=== PATIENT | male | born 1955 | race Two or more races ===

== ENCOUNTER 2017-12-22 04:54 | Inpatient (IN) | payer BC, OTHER ==
[2017-12-22] MEDS ORDERED: ONDANSETRON 4 MG INJ IV (11:00)
[2017-12-22] MEDS ORDERED: NACL 0.9% 3 ML SYG IV (11:00)
[2017-12-22 12:25] LABS: ADD MAN DIFF? NO
[2017-12-22 12:33] LABS: ABNORMAL IP MESSAGE 1; BASOPHIL # 0.1 10^3/ul (0.0-0.1); BASOPHILS % 2.8 % (0.0-2.0); HEMATOCRIT 36.2 % (42.0-52.0); HEMOGLOBIN 12.5 g/dl (14.0-18.0); LYMPHOCYTES # 1.1 10^3/ul (0.8-2.9); LYMPHOCYTES % 30.1 % (15.0-51.0); MEAN CORPUSCULAR HEMOGLOBIN 29.3 pg (29.0-33.0); MEAN CORPUSCULAR HGB CONC 34.5 g/dl (32.0-37.0); MEAN PLATELET VOLUME 10.6 fl (7.4-10.4); MONOCYTE # 0.5 10^3/ul (0.3-0.9); MONOCYTES % 14.4 % (0.0-11.0); NEUTROPHIL # 1.9 10^3/ul (1.6-7.5); NEUTROPHILS % 52.4 % (39.0-77.0); PLATELET COUNT 79 10^3/UL (140-415); POSITIVE DIFF @See below; RED BLOOD COUNT 4.26 10^6/ul (4.70-6.10); RED CELL DISTRIBUTION WIDTH 14.8 % (11.5-14.5)
[2017-12-22 12:33] LABS: WHITE BLOOD COUNT 3.6 10^3/ul (4.8-10.8)
[2017-12-22 12:51] LABS: LACTIC ACID 1.3 mmol/L (0.5-2.0)
[2017-12-22 12:53] LABS: ALANINE AMINOTRANSFERASE 155 IU/L (13-69); ALBUMIN 3.4 g/dl (3.3-4.9); ALBUMIN/GLOBULIN RATIO 1.09; ALKALINE PHOSPHATASE 341 IU/L (42-121); ANION GAP 12 (8-16); ASPARTATE AMINO TRANSFERASE 69 IU/L (15-46); BILIRUBIN,INDIRECT 0.9 mg/dl (0-1.1); BILIRUBIN,TOTAL 0.9 mg/dl (0.2-1.3); BLOOD UREA NITROGEN 8 mg/dl (7-20); CALCIUM 8.5 mg/dl (8.4-10.2); CARBON DIOXIDE 23 mmol/L (21-31); CHLORIDE 109 mmol/L (97-110); CHOL/HDL RATIO 7.8 RATIO; CHOLESTEROL 117 mg/dl (100-200); CREATININE 0.59 mg/dl (0.61-1.24); GLUCOSE 107 mg/dl (70-220); HDL CHOLESTEROL 15 mg/dl (30-78); LDL CHOLESTEROL,CALCULATED 38 mg/dl; POTASSIUM 3.9 mmol/L (3.5-5.1); SODIUM 140 mmol/L (135-144); TOTAL PROTEIN 6.5 g/dl (6.1-8.1); TRIGLYCERIDES 322 mg/dl (0-149)
[2017-12-22 13:28] LABS: THYROID STIMULATING HORMONE 0.438 MIU/L (0.465-4.680)
[2017-12-22] MEDS: SOD CHLORIDE 0.9% 1,000 ML IV ×3 (13:30→23:30)
[2017-12-22 13:49] LABS: ANISOCYTOSIS 1+ (0-0); BAND NEUTROPHILS #M 0.3 10^3/ul (0.0-0.6); BAND NEUTROPHILS % (M) 10 % (0-4); BASOPHILS % (M) 1 % (0-2); GIANT THROMBO% (M) 6 % (0-0); LYMPHOCYTES #M 0.5 10^3/ul (0.8-2.9); LYMPHOCYTES % (M) 15 % (15-51); METAMYELOCYTES %M 1 % (0-0); MICROCYTOSIS 1+ (0-0); MONOCYTE #M 0.3 10^3/ul (0.3-0.9); MONOCYTES % (M) 11 % (0-11); PLATELET ESTIMATE DECREASED; REACTIVE LYMPHOCYTES #M 0.2 10^3/ul (0.0-0.0); REACTIVE LYMPHOCYTES% (M) 8 % (0-0); SEGMENTED NEUTROPHILS (M) % 54 % (39-77); SMUDGE%M 5 % (0-0)
[2017-12-22] MEDS: SOD CHLORIDE 0.9% 500 ML IV (14:24)
[2017-12-22] MEDS: ACETAMINOPHEN 325 MG TAB PO (15:30)
[2017-12-22] MEDS: PIPER-TAZO 3.375 GM IV (PMX) 100 ML IVPB ×2 (15:34→18:57)
[2017-12-22 17:20] LABS: HEMOGLOBIN A1C 5.1 % (0-5.9)
[2017-12-22] MEDS: SOD CHLORIDE 0.9% 100 ML (17:51)
[2017-12-22] MEDS: IOHEXOL 300MG/ML 150 ML BTL (17:51)
[2017-12-22] MEDS: FISH OIL 1,000 MG CAP PO (20:48)
[2017-12-23] MEDS: PIPER-TAZO 3.375 GM IV (PMX) 100 ML IVPB ×4 (00:15→18:22)
[2017-12-23] MEDS: SOD CHLORIDE 0.9% 1,000 ML IV ×3 (05:48→18:22)
[2017-12-23 06:04] LABS: ABNORMAL IP MESSAGE 1; HEMATOCRIT 33.8 % (42.0-52.0); HEMOGLOBIN 11.7 g/dl (14.0-18.0); MEAN CORPUSCULAR HEMOGLOBIN 29.4 pg (29.0-33.0); MEAN CORPUSCULAR HGB CONC 34.6 g/dl (32.0-37.0); MEAN CORPUSCULAR VOLUME 84.9 fl (82.0-101.0); MEAN PLATELET VOLUME 11.2 fl (7.4-10.4); PLATELET COUNT 64 10^3/UL (140-415); POSITIVE DIFF @See below; RED BLOOD COUNT 3.98 10^6/ul (4.70-6.10); RED CELL DISTRIBUTION WIDTH 14.6 % (11.5-14.5)
[2017-12-23 06:04] LABS: WHITE BLOOD COUNT 3.2 10^3/ul (4.8-10.8)
[2017-12-23 06:14] LABS: ADD MAN DIFF? YES
[2017-12-23 07:14] LABS: ANION GAP 10 (8-16); BLOOD UREA NITROGEN 11 mg/dl (7-20); CALCIUM 8.3 mg/dl (8.4-10.2); CARBON DIOXIDE 24 mmol/L (21-31); CHLORIDE 107 mmol/L (97-110); CREATININE 0.72 mg/dl (0.61-1.24); GLUCOSE 124 mg/dl (70-220); POTASSIUM 3.7 mmol/L (3.5-5.1); SODIUM 137 mmol/L (135-144)
[2017-12-23] MEDS: ACETAMINOPHEN 325 MG TAB PO ×2 (07:52→20:24)
[2017-12-23] MEDS: FISH OIL 1,000 MG CAP PO ×2 (08:19→20:24)
[2017-12-23 09:18] LABS: ANISOCYTOSIS 1+ (0-0); BAND NEUTROPHILS #M 0.3 10^3/ul (0.0-0.6); BAND NEUTROPHILS % (M) 11 % (0-4); GIANT THROMBO% (M) 1 % (0-0); LYMPHOCYTES #M 0.8 10^3/ul (0.8-2.9); LYMPHOCYTES % (M) 25 % (15-51); MICROCYTOSIS 1+ (0-0); MONOCYTE #M 0.4 10^3/ul (0.3-0.9); MONOCYTES % (M) 13 % (0-11); PLATELET ESTIMATE SIG DECREASED; POIKILOCYTOSIS 1+ (0-0); POLYCHROMASIA 1+ (0-0); REACTIVE LYMPHOCYTES #M 0.1 10^3/ul (0.0-0.0); REACTIVE LYMPHOCYTES% (M) 5 % (0-0); SEG NEUT #M 1.5 10^3/ul (1.6-7.5); SEGMENTED NEUTROPHILS (M) % 46 % (39-77); SMUDGE%M 17 % (0-0); SPHEROCYTES 1+ (0-0); TEAR DROP CELLS 1+ (0-0)
[2017-12-23 11:33] LABS: HAAIG REFLEX REFLEX FILED
[2017-12-23 12:03] LABS: INR 1.19; PROTIME 15.3 Sec (11.9-14.9); PT RATIO 1.2
[2017-12-23 12:04] LABS: PARTIAL THROMBOPLASTIN TIME 31.5 Sec (25.0-35.0)
[2017-12-23 12:53] LABS: HEPATITIS B SURFACE ANTIGEN NEGATIVE (NEGATIVE)
[2017-12-23 13:07] LABS: HIV 1&2 ANTIBODY NEGATIVE (NEGATIVE)
[2017-12-23 13:11] LABS: HEPATITIS B CORE ANTIBODY NEGATIVE (NEGATIVE); HEPATITIS C VIRAL ANTIBODY NEGATIVE (NEGATIVE)
[2017-12-23 17:23] LABS: IRON 52 ug/dl (35-150)
[2017-12-23 17:29] LABS: RHEUMATOID FACTOR NEGATIVE (NEGATIVE)
[2017-12-23 17:33] LABS: % IRON SATURATION 14 % SAT (22-52); TOTAL IRON BINDING CAPACITY 363 ug/dl (241-421)
[2017-12-23 18:13] LABS: HEPATITIS C VIRAL ANTIBODY NEGATIVE (NEGATIVE)
[2017-12-23 18:14] LABS: HEPATITIS B SURFACE ANTIBODY NEGATIVE (NEGATIVE)
[2017-12-23 18:14] LABS: ADD UMIC NO; UR ASCORBIC ACID NEGATIVE (NEGATIVE); UR BILIRUBIN (Dip) NEGATIVE (NEGATIVE); UR BLOOD (Dip) NEGATIVE (NEGATIVE); UR CLARITY CLEAR (CLEAR); UR COLOR YELLOW (YELLOW); UR GLUCOSE (Dip) NEGATIVE (NEGATIVE); UR KETONES (Dip) NEGATIVE (NEGATIVE); UR LEUKOCYTE ESTERASE (Dip) NEGATIVE Leu/ul (NEGATIVE); UR NITRITE (Dip) NEGATIVE (NEGATIVE); UR SPECIFIC GRAVITY (Dip) 1.015 (1.003-1.030); UR TOTAL PROTEIN (Dip) NEGATIVE (NEGATIVE); UR UROBILINOGEN (Dip) NEGATIVE (NEGATIVE)
[2017-12-24] MEDS: PIPER-TAZO 3.375 GM IV (PMX) 100 ML IVPB ×5 (00:15→23:38)
[2017-12-24] MEDS: SOD CHLORIDE 0.9% 1,000 ML IV ×3 (05:33→17:22)
[2017-12-24] MEDS: ACETAMINOPHEN 325 MG TAB PO ×3 (05:34→21:00)
[2017-12-24 05:42] LABS: ABNORMAL IP MESSAGE 1; HEMOGLOBIN 12.3 g/dl (14.0-18.0); MEAN CORPUSCULAR HEMOGLOBIN 29.2 pg (29.0-33.0); MEAN CORPUSCULAR HGB CONC 34.2 g/dl (32.0-37.0); MEAN CORPUSCULAR VOLUME 85.5 fl (82.0-101.0); MEAN PLATELET VOLUME 10.8 fl (7.4-10.4); PLATELET COUNT 69 10^3/UL (140-415); POSITIVE DIFF @See below; RED BLOOD COUNT 4.21 10^6/ul (4.70-6.10)
[2017-12-24 06:00] LABS: ADD MAN DIFF? YES
[2017-12-24 07:48] LABS: ANISOCYTOSIS 1+ (0-0); BAND NEUTROPHILS #M 0.2 10^3/ul (0.0-0.6); BAND NEUTROPHILS % (M) 8 % (0-4); LYMPHOCYTES #M 0.9 10^3/ul (0.8-2.9); LYMPHOCYTES % (M) 32 % (15-51); MONOCYTE #M 0.4 10^3/ul (0.3-0.9); MONOCYTES % (M) 14 % (0-11); PLATELET ESTIMATE DECREASED; REACTIVE LYMPHOCYTES% (M) 2 % (0-0); SEG NEUT #M 1.3 10^3/ul (1.6-7.5); SEGMENTED NEUTROPHILS (M) % 44 % (39-77); SMUDGE%M 5 % (0-0)
[2017-12-24] MEDS: FISH OIL 1,000 MG CAP PO ×2 (10:15→20:59)
[2017-12-24] MEDS: DOXYCYCLINE 100 MG in SOD CHLORIDE 0.9% 250 ML IVPB (20:59)
[2017-12-25] MEDS: SOD CHLORIDE 0.9% 1,000 ML IV ×3 (01:30→16:13)
[2017-12-25] MEDS: ACETAMINOPHEN 325 MG TAB PO ×3 (02:57→20:03)
[2017-12-25] MEDS: PIPER-TAZO 3.375 GM IV (PMX) 100 ML IVPB ×3 (05:31→17:40)
[2017-12-25 06:05] LABS: ABNORMAL IP MESSAGE 1; HEMATOCRIT 32.4 % (42.0-52.0); HEMOGLOBIN 11.2 g/dl (14.0-18.0); MEAN CORPUSCULAR HEMOGLOBIN 29.1 pg (29.0-33.0); MEAN CORPUSCULAR HGB CONC 34.6 g/dl (32.0-37.0); MEAN CORPUSCULAR VOLUME 84.2 fl (82.0-101.0); MEAN PLATELET VOLUME 11.1 fl (7.4-10.4); PLATELET COUNT 64 10^3/UL (140-415); POSITIVE DIFF @See below; RED BLOOD COUNT 3.85 10^6/ul (4.70-6.10); RED CELL DISTRIBUTION WIDTH 14.9 % (11.5-14.5)
[2017-12-25 06:05] LABS: WHITE BLOOD COUNT 2.5 10^3/ul (4.8-10.8)
[2017-12-25 06:10] LABS: ADD MAN DIFF? YES
[2017-12-25 08:51] LABS: INFLUENZA VIRUS A/B SOURCE NASOPHARYNGEAL
[2017-12-25] MEDS: DOXYCYCLINE 100 MG in SOD CHLORIDE 0.9% 250 ML IVPB ×3 (09:00→20:07)
[2017-12-25] MEDS: FISH OIL 1,000 MG CAP PO ×2 (09:00→20:07)
[2017-12-25 09:35] LABS: ANISOCYTOSIS 1+ (0-0); BAND NEUTROPHILS #M 0.2 10^3/ul (0.0-0.6); BAND NEUTROPHILS % (M) 10 % (0-4); GIANT THROMBO% (M) 5 % (0-0); LYMPHOCYTES #M 0.6 10^3/ul (0.8-2.9); LYMPHOCYTES % (M) 24 % (15-51); MONOCYTE #M 0.4 10^3/ul (0.3-0.9); MONOCYTES % (M) 16 % (0-11); PLATELET ESTIMATE DECREASED; POLYCHROMASIA 1+ (0-0); REACTIVE LYMPHOCYTES% (M) 3 % (0-0); SEG NEUT #M 1.2 10^3/ul (1.6-7.5); SEGMENTED NEUTROPHILS (M) % 46 % (39-77); SMUDGE%M 11 % (0-0)
[2017-12-25 10:26] LABS: CYTOMEGALOVIRUS ANTIBODY (IGM) <30.00 AU/mL
[2017-12-25 13:26] LABS: ANA SCREEN NEGATIVE (NEGATIVE)
[2017-12-25] MEDS: MIDAZOLAM 1 MG/ML 2 ML INJ (13:57)
[2017-12-25] MEDS: SOD CHLORIDE 0.9% 500 ML (13:57)
[2017-12-25] MEDS: FENTAnyl 50 MCG/ML VIAL (13:57)
[2017-12-25] MEDS: LIDOCAINE 1% (MDV) 10 ML INJ (13:57)
[2017-12-25 15:00] LABS: RAPID PLASMA REAGIN NONREACTIVE (NR)
[2017-12-25 15:08] LABS: MONOTEST Positive (NEG)
[2017-12-25 15:47] LABS: ALBUMIN 3.3 g/dL (3.8-4.8); ALPHA-1-GLOBULINS 0.4 g/dL (0.2-0.3); ALPHA-2-GLOBULINS 0.7 g/dL (0.5-0.9); BETA 2 GLOBULINS 0.3 g/dL (0.2-0.5); BETA GLOBULINS 0.4 g/dL (0.4-0.6); GAMMA GLOBULINS 0.9 g/dL (0.8-1.7)
[2017-12-26] MEDS: PIPER-TAZO 3.375 GM IV (PMX) 100 ML IVPB ×6 (01:17→17:41)
[2017-12-26] MEDS: ACETAMINOPHEN 325 MG TAB PO ×3 (01:27→22:26)
[2017-12-26] MEDS: SOD CHLORIDE 0.9% 1,000 ML IV ×2 (06:26→17:30)
[2017-12-26 06:29] LABS: WHITE BLOOD COUNT 2.8 10^3/ul (4.8-10.8)
[2017-12-26 06:29] LABS: ABNORMAL IP MESSAGE 1; HEMATOCRIT 32.2 % (42.0-52.0); HEMOGLOBIN 11.2 g/dl (14.0-18.0); MEAN CORPUSCULAR HEMOGLOBIN 29.3 pg (29.0-33.0); MEAN CORPUSCULAR HGB CONC 34.8 g/dl (32.0-37.0); MEAN CORPUSCULAR VOLUME 84.3 fl (82.0-101.0); PLATELET COUNT 81 10^3/UL (140-415); POSITIVE DIFF @See below; RED BLOOD COUNT 3.82 10^6/ul (4.70-6.10); RED CELL DISTRIBUTION WIDTH 15.8 % (11.5-14.5)
[2017-12-26 06:40] LABS: ADD MAN DIFF? YES
[2017-12-26 07:59] LABS: ANISOCYTOSIS 1+ (0-0); BAND NEUTROPHILS #M 0.3 10^3/ul (0.0-0.6); BAND NEUTROPHILS % (M) 12 % (0-4); EOSINOPHILS % (M) 1 % (0-7); GIANT THROMBO% (M) 1 % (0-0); LYMPHOCYTES % (M) 39 % (15-51); MONOCYTE #M 0.1 10^3/ul (0.3-0.9); MONOCYTES % (M) 4 % (0-11); PLATELET ESTIMATE DECREASED; SEG NEUT #M 1.3 10^3/ul (1.6-7.5); SEGMENTED NEUTROPHILS (M) % 45 % (39-77); SMUDGE%M 58 % (0-0)
[2017-12-26] MEDS: FISH OIL 1,000 MG CAP PO ×2 (08:42→20:32)
[2017-12-26] MEDS: DOXYCYCLINE 100 MG in SOD CHLORIDE 0.9% 250 ML IVPB ×2 (08:43→20:33)
[2017-12-26] MEDS: NAPROXEN 250 MG TAB PO ×2 (12:36→20:32)
[2017-12-26] MEDS: MULTIVITAMINS THERAPEUTIC TAB PO (12:37)
[2017-12-26 20:02] LABS: EBV VIRAL CAPSID AG AB (IGM) <36.00 U/mL
[2017-12-26] MEDS: CALCIUM CARBONATE 1.25 GM TAB GTB (20:32)
[2017-12-27] MEDS: PIPER-TAZO 3.375 GM IV (PMX) 100 ML IVPB ×4 (00:55→17:49)
[2017-12-27] MEDS: SOD CHLORIDE 0.9% 1,000 ML IV ×3 (03:30→19:48)
[2017-12-27 06:34] LABS: ABNORMAL IP MESSAGE 1; HEMATOCRIT 33.1 % (42.0-52.0); HEMOGLOBIN 11.3 g/dl (14.0-18.0); MEAN CORPUSCULAR HGB CONC 34.1 g/dl (32.0-37.0); MEAN CORPUSCULAR VOLUME 84.9 fl (82.0-101.0); PLATELET COUNT 68 10^3/UL (140-415); POSITIVE DIFF @See below; RED CELL DISTRIBUTION WIDTH 15.8 % (11.5-14.5)
[2017-12-27 06:34] LABS: WHITE BLOOD COUNT 1.9 10^3/ul (4.8-10.8)
[2017-12-27 06:44] LABS: ADD MAN DIFF? YES
[2017-12-27 08:13] LABS: ANISOCYTOSIS 1+ (0-0); BAND NEUTROPHILS #M 0.2 10^3/ul (0.0-0.6); BAND NEUTROPHILS % (M) 11 % (0-4); GIANT THROMBO% (M) 3 % (0-0); HYPOCHROMASIA 2+ (0-0); LYMPHOCYTES #M 0.4 10^3/ul (0.8-2.9); LYMPHOCYTES % (M) 24 % (15-51); MONOCYTE #M 0.2 10^3/ul (0.3-0.9); MONOCYTES % (M) 15 % (0-11); PLATELET ESTIMATE SIG DECREASED; POLYCHROMASIA 3+ (0-0); REACTIVE LYMPHOCYTES #M 0.1 10^3/ul (0.0-0.0); REACTIVE LYMPHOCYTES% (M) 7 % (0-0); SEG NEUT #M 0.8 10^3/ul (1.6-7.5); SEGMENTED NEUTROPHILS (M) % 43 % (39-77); SMUDGE%M 5 % (0-0)
[2017-12-27] MEDS: VITAMIN B COMPLEX/VIT C CAP PO (08:24)
[2017-12-27] MEDS: FISH OIL 1,000 MG CAP PO ×2 (08:24→21:15)
[2017-12-27] MEDS: MULTIVITAMINS THERAPEUTIC TAB PO (08:24)
[2017-12-27] MEDS: CALCIUM CARBONATE 1.25 GM TAB GTB ×2 (08:24→21:15)
[2017-12-27] MEDS: CHOLECALCIFEROL 1,000 UNIT TAB PO (08:24)
[2017-12-27] MEDS: NAPROXEN 250 MG TAB PO ×2 (08:24→21:15)
[2017-12-27] MEDS: DOXYCYCLINE 100 MG in SOD CHLORIDE 0.9% 250 ML IVPB ×2 (08:24→21:15)
[2017-12-27] MEDS: ACETAMINOPHEN 325 MG TAB PO (19:48)
[2017-12-28] MEDS: PIPER-TAZO 3.375 GM IV (PMX) 100 ML IVPB ×2 (00:01→05:23)
[2017-12-28 05:43] LABS: ADD MAN DIFF? NO
[2017-12-28 05:46] LABS: ABNORMAL IP MESSAGE 1; BASOPHILS % 1.8 % (0.0-2.0); POSITIVE DIFF @See below
[2017-12-28 06:55] LABS: WHITE BLOOD COUNT 2.3 10^3/ul (4.8-10.8)
[2017-12-28 06:55] LABS: EOSINOPHILS % 0.4 % (0.0-7.0); HEMATOCRIT 30.6 % (42.0-52.0); HEMOGLOBIN 10.7 g/dl (14.0-18.0); LYMPHOCYTES # 0.7 10^3/ul (0.8-2.9); LYMPHOCYTES % 30.5 % (15.0-51.0); MEAN CORPUSCULAR HEMOGLOBIN 29.2 pg (29.0-33.0); MEAN CORPUSCULAR VOLUME 83.4 fl (82.0-101.0); MEAN PLATELET VOLUME 11.4 fl (7.4-10.4); MONOCYTE # 0.4 10^3/ul (0.3-0.9); NEUTROPHIL # 1.2 10^3/ul (1.6-7.5); NEUTROPHILS % 51.4 % (39.0-77.0); PLATELET COUNT 66 10^3/UL (140-415); RED BLOOD COUNT 3.67 10^6/ul (4.70-6.10); RED CELL DISTRIBUTION WIDTH 15.9 % (11.5-14.5)
[2017-12-28 07:16] LABS: MONOCYTES % 15.5 % (0.0-11.0)
[2017-12-28] MEDS: MULTIVITAMINS THERAPEUTIC TAB PO (08:25)
[2017-12-28] MEDS: VITAMIN B COMPLEX/VIT C CAP PO (08:25)
[2017-12-28] MEDS: CHOLECALCIFEROL 1,000 UNIT TAB PO (08:25)
[2017-12-28] MEDS: FISH OIL 1,000 MG CAP PO ×2 (08:25→20:22)
[2017-12-28] MEDS: DOXYCYCLINE 100 MG in SOD CHLORIDE 0.9% 250 ML IVPB (08:25)
[2017-12-28] MEDS: CALCIUM CARBONATE 1.25 GM TAB GTB ×2 (08:25→20:22)
[2017-12-28] MEDS: NAPROXEN 250 MG TAB PO ×2 (08:25→20:22)
[2017-12-28] MEDS: SOD CHLORIDE 0.9% 1,000 ML IV ×2 (08:26→20:23)
[2017-12-28 09:23] LABS: ANISOCYTOSIS 1+ (0-0); BAND NEUTROPHILS #M 0.3 10^3/ul (0.0-0.6); BAND NEUTROPHILS % (M) 16 % (0-4); BASOPHILS % (M) 2 % (0-2); GIANT THROMBO% (M) 6 % (0-0); LYMPHOCYTES #M 0.5 10^3/ul (0.8-2.9); LYMPHOCYTES % (M) 25 % (15-51); MONOCYTES % (M) 4 % (0-11); PLATELET ESTIMATE DECREASED; SEG NEUT #M 1.2 10^3/ul (1.6-7.5); SEGMENTED NEUTROPHILS (M) % 53 % (39-77); SMUDGE%M 65 % (0-0)
[2017-12-28] MEDS: ACETAMINOPHEN 325 MG TAB PO (22:33)
[2017-12-29] MEDS: SOD CHLORIDE 0.9% 1,000 ML IV ×2 (05:53→18:01)
[2017-12-29] MEDS: IOHEXOL 300MG/ML 150 ML BTL (09:53)
[2017-12-29] MEDS: SOD CHLORIDE 0.9% 100 ML (09:53)
[2017-12-29] MEDS: VITAMIN B COMPLEX/VIT C CAP PO (09:55)
[2017-12-29] MEDS: FISH OIL 1,000 MG CAP PO ×2 (09:55→20:55)
[2017-12-29] MEDS: CALCIUM CARBONATE 1.25 GM TAB GTB ×2 (09:56→21:27)
[2017-12-29] MEDS: NAPROXEN 250 MG TAB PO ×2 (09:56→20:55)
[2017-12-29] MEDS: CHOLECALCIFEROL 1,000 UNIT TAB PO (09:56)
[2017-12-29] MEDS: MULTIVITAMINS THERAPEUTIC TAB PO (09:56)
[2017-12-29 13:28] LABS: NIL 0.25 IU/mL; QUANTIFERON(R)-TB GOLD NEGATIVE (NEGATIVE); TB-NIL 0.02 IU/mL
[2017-12-29 20:58] LABS: WEST NILE VIRUS ANTIBODY (IGG) <1.30 index; WEST NILE VIRUS ANTIBODY (IGM) <0.90 index
[2017-12-30] MEDS: SOD CHLORIDE 0.9% 1,000 ML IV ×3 (02:57→22:32)
[2017-12-30 06:20] LABS: ABNORMAL IP MESSAGE 1; HEMATOCRIT 28.9 % (42.0-52.0); HEMOGLOBIN 10.2 g/dl (14.0-18.0); MEAN CORPUSCULAR HEMOGLOBIN 28.9 pg (29.0-33.0); MEAN CORPUSCULAR HGB CONC 35.3 g/dl (32.0-37.0); MEAN CORPUSCULAR VOLUME 81.9 fl (82.0-101.0); MEAN PLATELET VOLUME 10.7 fl (7.4-10.4); PLATELET COUNT 87 10^3/UL (140-415); POSITIVE DIFF @See below; RED BLOOD COUNT 3.53 10^6/ul (4.70-6.10); RED CELL DISTRIBUTION WIDTH 16.4 % (11.5-14.5)
[2017-12-30 06:20] LABS: WHITE BLOOD COUNT 2.7 10^3/ul (4.8-10.8)
[2017-12-30 06:51] LABS: ADD MAN DIFF? YES
[2017-12-30] MEDS: FISH OIL 1,000 MG CAP PO ×2 (08:43→20:07)
[2017-12-30] MEDS: NAPROXEN 250 MG TAB PO ×2 (08:43→20:07)
[2017-12-30] MEDS: VITAMIN B COMPLEX/VIT C CAP PO (08:43)
[2017-12-30] MEDS: MULTIVITAMINS THERAPEUTIC TAB PO (08:43)
[2017-12-30] MEDS: CHOLECALCIFEROL 1,000 UNIT TAB PO (08:43)
[2017-12-30] MEDS: CALCIUM CARBONATE 1.25 GM TAB GTB ×2 (08:43→20:07)
[2017-12-30 10:01] LABS: ANISOCYTOSIS 1+ (0-0); BAND NEUTROPHILS #M 0.2 10^3/ul (0.0-0.6); BAND NEUTROPHILS % (M) 10 % (0-4); HYPOCHROMASIA 1+ (0-0); LYMPHOCYTES #M 0.6 10^3/ul (0.8-2.9); LYMPHOCYTES % (M) 23 % (15-51); MONOCYTE #M 0.4 10^3/ul (0.3-0.9); MONOCYTES % (M) 16 % (0-11); MYELOCYTES % (M) 1 % (0-0); PLATELET ESTIMATE DECREASED; POIKILOCYTOSIS 1+ (0-0); POLYCHROMASIA 1+ (0-0); REACTIVE LYMPHOCYTES #M 0.1 10^3/ul (0.0-0.0); REACTIVE LYMPHOCYTES% (M) 4 % (0-0); SEG NEUT #M 1.2 10^3/ul (1.6-7.5); SEGMENTED NEUTROPHILS (M) % 46 % (39-77); SMUDGE%M 7 % (0-0)
[2017-12-31 06:37] LABS: WHITE BLOOD COUNT 2.3 10^3/ul (4.8-10.8)
[2017-12-31 06:37] LABS: ABNORMAL IP MESSAGE 1; HEMOGLOBIN 10.2 g/dl (14.0-18.0); MEAN CORPUSCULAR HEMOGLOBIN 28.7 pg (29.0-33.0); MEAN CORPUSCULAR HGB CONC 35.2 g/dl (32.0-37.0); MEAN CORPUSCULAR VOLUME 81.5 fl (82.0-101.0); MEAN PLATELET VOLUME 10.6 fl (7.4-10.4); PLATELET COUNT 96 10^3/UL (140-415); POSITIVE DIFF @See below; RED BLOOD COUNT 3.56 10^6/ul (4.70-6.10)
[2017-12-31 06:47] LABS: ADD MAN DIFF? YES
[2017-12-31] MEDS: SOD CHLORIDE 0.9% 1,000 ML IV (08:31)
[2017-12-31] MEDS: CALCIUM CARBONATE 1.25 GM TAB GTB (09:03)
[2017-12-31] MEDS: VITAMIN B COMPLEX/VIT C CAP PO (09:03)
[2017-12-31] MEDS: MULTIVITAMINS THERAPEUTIC TAB PO (09:03)
[2017-12-31] MEDS: NAPROXEN 250 MG TAB PO (09:03)
[2017-12-31] MEDS: CHOLECALCIFEROL 1,000 UNIT TAB PO (09:03)
[2017-12-31] MEDS: FISH OIL 1,000 MG CAP PO (09:03)
[2017-12-31 10:25] LABS: ANISOCYTOSIS 1+ (0-0); BAND NEUTROPHILS #M 0.4 10^3/ul (0.0-0.6); BAND NEUTROPHILS % (M) 19 % (0-4); BURR CELLS 1+ (0-0); EOSINOPHILS % (M) 2 % (0-7); GIANT THROMBO% (M) 1 % (0-0); HYPOCHROMASIA 2+ (0-0); LYMPHOCYTES #M 0.7 10^3/ul (0.8-2.9); LYMPHOCYTES % (M) 34 % (15-51); MONOCYTES % (M) 3 % (0-11); PLATELET ESTIMATE DECREASED; POLYCHROMASIA 1+ (0-0); SEGMENTED NEUTROPHILS (M) % 42 % (39-77); SMUDGE%M 2 % (0-0)
[2017-12-31] MEDS: ACETAMINOPHEN 325 MG TAB PO (15:16)
== END 2017-12-31 17:10 | disposition home or self-care (01) | DRG 864 ==
LOC: MS2 04:54
PROC: 07DR3ZX Extraction of Iliac Bone Marrow, Percutaneous Approach, Diagnostic (ICD-10-PCS; principal; 2017-12-25)
DX: R50.9 Fever, unspecified (principal); D61.818 Other pancytopenia; D63.1 Anemia in chronic kidney disease; E78.1 Pure hyperglyceridemia; D64.89 Other specified anemias; D73.1 Hypersplenism; B34.9 Viral infection, unspecified; K76.0 Fatty (change of) liver, not elsewhere classified; F17.200 Nicotine dependence, unspecified, uncomplicated; M19.90 Unspecified osteoarthritis, unspecified site; R74.0 Nonspecific elevation of levels of transaminase and lactic acid dehydrogenase [LDH]; R91.1 Solitary pulmonary nodule; G44.209 Tension-type headache, unspecified, not intractable
CPT/HCPCS: 70450; 71045; 71260; 74178; 77012; 78806; 80048; 80053; 80061; 81003; 82728; 83036; 83540; 83605; 84155; 84165; 84443; 85025; 85384; 85610; 85613; 85730; 86038; 86308; 86320; 86430; 86480; 86592; 86635; 86638; 86644; 86664; 86698; 86703; 86704; 86706; 86709; 86788; 86789; 86803; 87040; 87045; 87086; 87177; 87338; 87340; 87502; 88305; 88311; 88313; 93306; 93970